=== PATIENT | male | born 2000 | race Caucasian/White ===

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

== ENCOUNTER 2021-02-24 19:30 | Emergency (ER) | payer OTHER ==
[~2021-02-24] VITALS: Ht 175.3 cm; Wt 86.2 kg
[2021-02-24] MEDS ORDERED: AMOXIL 875 MG875 M1 PO (20:07)
[2021-02-24 20:29] VITALS: BP 104/40
== END 2021-02-24 20:29 | disposition home or self-care (01) ==
LOC: M.ERS 19:30
DX: K04.7 Periapical abscess without sinus (principal)

== ENCOUNTER 2021-07-16 00:52 | Emergency (ER) | payer OTHER ==
[~2021-07-16] VITALS: Ht 172.7 cm; Wt 86.2 kg
[~2021-07-16 00:52] MED LIST changes: +AMOXIL 875 MG875 M1 PO
[2021-07-16 01:48] LABS: INFLUENZA A ANTIGEN Negative (Negative); INFLUENZA B ANTIGEN Negative (Negative)
[2021-07-16 02:42] VITALS: BP 145/88
== END 2021-07-16 02:42 | disposition home or self-care (01) ==
LOC: M.ERS 00:52
PROVIDERS: Personal Emergency Response Attendant
DX: B34.9 Viral infection, unspecified (principal); Z20.822 Contact with and (suspected) exposure to COVID-19; F90.9 Attention-deficit hyperactivity disorder, unspecified type; F17.210 Nicotine dependence, cigarettes, uncomplicated